=== PATIENT | female | born 1970 | race Caucasian/White ===

== ENCOUNTER 2025-01-27 19:57 | Inpatient (IN) | payer OTHER, SELFPAY ==
[2025-01-27] VITALS (11 sets, daily range): BP systolic 99–151; BP diastolic 75–131; BMI 24.7
--- NOTE | 2025-01-27 14:18 | ED.GENMED ---
ED Provider Triage
<Cole Ochoa PA-C - Last Filed: 01/27/25 14:19>
-
Patient seen by provider in Triage?: Seen in Triage
Attestation: A medical screening examination has been initiated by a qualified medical provider. Based on the assessment performed at this time, it has been determined that an emergent medical condition may exist and the patient has been informed
that further medical evaluation and possible additional diagnostic testing may be needed.
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 She denies any preceding chest pain or lightheadedness. She remembers waking up on the floor. She did hit
her head. She has a slight headache. She is not anticoagulated. She feels slightly nauseous at this time. EKG and labs ordered.
GENERAL: Alert , in no apparent distress
EYE: No visual abnormalities.
NECK: Trachea midline
ENT: No visible abnormalities.
LUNGS: No acute respiratory distress
NEUROLOGICAL: Alert and oriented
SKIN: Skin intact. No visible changes.
MUSCULOSKELETAL: Moving extremities normally
PSYCH: Normal and appropriate interaction.
This is a medical evaluation conducted in person to initiate diagnostic evaluation and provide initial therapeutics. Please see further documentation by the treating clinician.
History of Present Illness
<Cole Ochoa PA-C - Last Filed: 01/27/25 14:19>
General
Chief Complaint: Fainting/Passed Out
Time Seen by Provider: 01/27/25 16:54
<Tobias Whitney DO - Last Filed: 01/27/25 20:16>
History of Present Illness
History of Present Illness:
TIME OF INITIAL ENCOUNTER:
HPI: Patient states that she was working at [employer], changing diaper then she suddenly passed out and struck her head on the floor. There was no definite seizure activity. There is no bowel or bladder incontinence or retention and there
is no tongue bite enrique. She does report having some headaches even before the incident today. There is a small laceration to the back of her head which has 'stopped bleeding'.
EXAM:
GENERAL: Well appearing in no distress
CERVICAL SPINE: No midline c-spine tenderness with excellent AROM
HEAD: Small superficial laceration not currently bleeding but with some associated tenderness over the occiput, no scalp hematoma
CHEST: No chest wall tenderness, normal heart sounds
LUNGS: Equal lung sounds, no respiratory distress
ABDOMEN: No abdominal tenderness, no peritoneal signs
EXTREMITIES: Normal active range of motion, no tenderness
NEURO: Excellent strength all extremities, appropriate mental status, normal speech/language
NUMBER AND COMPLEXITY OF PROBLEMS ADDRESSED AT THE ENCOUNTER
� Chronic conditions affecting care: Asthma, has had concussions
� Acute Exacerbation and/or Progression of Chronic Illness: This is an acute problem
� Differential Diagnosis includes: Concussion, minor head injury, hypoglycemia, anemia, intracranial abnormality
AMOUNT AND/OR COMPLEXITY OF DATA TO BE REVIEWED AND ANALYZED
� I performed an independent evaluation of and my interpretation is:
EKG: Sinus 82, nonspecific ST abnormality
CT: CT brain personally reviewed and I agree with radiologist interpretation that there is a hyperdensity at the midline measuring about 2 cm with some associated edema
X-rays:
Laboratory Studies: CBC unremarkable, chemistries show a slightly low bicarb at 19, transaminases are elevated at 150/202 but normal total bili and alk phos
Other:
� Review of other/old records: I reviewed records, the patient had a colonoscopy in 2022
� Clinical information was obtained by an independent historian: None needed, but I spoke to the at bedside
� Prescriptions/Medications Considered but not given:
� Further testing considered but not performed:
RISK OF COMPLICATIONS AND/OR MORBIDITY OR MORTALITY OF PATIENT MANAGEMENT
� Social determinants of health affecting care: Lives at home
� Discussion with other providers: I spoke to Dr. Montez several times�CTA was recommended and performed which shows no evidence of aneurysm; Dr. Chávez for admission
� Escalation of care including admission/observation vs risk of discharge considered: CT of the brain shows a hyperdensity measuring about 2 cm at the midline inferiorly, however she is neurologically intact. She had been having
some headaches even before the fall today. CTA shows no evidence of aneurysm/aneurysm rupture. Dr. Montez agrees with Keppra/Decadron.
ANY OTHER UPDATES:
Patient has remained neurologically intact throughout her stay in the emerged department
Phy Exam
<Tobias Whitney DO - Last Filed: 01/27/25 20:16>
Physical Exam
Physical Exam:
See HPI
Course
<Cole Ochoa PA-C - Last Filed: 01/27/25 14:19>
Orders/Labs/Results
Orders:
Orders
01/27/25 14:16
Electrocardiogram (*1) Urgent
Reason for Study: Syncope
EKG- Treatment ONCE
01/27/25 14:36
Complete Blood Count/With Diff Urgent
Comprehensive Metabolic Panel Urgent
01/27/25 15:49
CT Head W/o Iv Contrast Urgent
Comment:
Reason For Exam: syncope, head strike
01/27/25 17:13
0.9% Sodium Chloride 500 ml [Nss] 500 ml IV BOLUS
01/27/25 17:33
CT Head Angio W/wo Iv Contrast Urgent
Comment:
Reason For Exam: eval mass; attention ACOMM region
01/27/25 19:08
Dexamethasone Sod Phosphate [Decadron] 4 mg IV NOW STA
Levetiracetam Injectable [Keppra] 500 mg IV NOW STA
01/27/25 19:31
Admit/Transfer Patient As Directed
Co-Sign Provider:
Level of Care: Inpatient admission
Assign to:: IMU- Intermediate Care
Physician / Group: Neelam Chávez
Diagnosis: planum sphenoidale meningioma
Reason for Hospitalization: planum sphenoidale meningioma
Expected length of stay greater than two midnights?: Yes
ELOS- Estimated Length of Stay in days: 3
I certify the patient meets the requirements for IP care: Yes
PRN Pain Medication Management As Directed
May give lesser potent ordered pain med per pt: Yes
preference::
Protocol:: Medication orders for pain may be administered in a
manner that supports deferring to patient preference
when the pt is:
- Requesting an ordered lesser potent pain medication.
Least to most potent pain medications are defined
as: acetaminophen < NSAID < tramadol < opioids
(morphine, oxycodone, hydromorphone).
- Requesting a lesser dose of the same medication IF
ORDERED.
- Requesting a less intrusive route of administration
if both routes are prescribed by the provider (PO <
IV).
01/27/25 19:33
Code Status As Directed
Resuscitation Status: Full Code
Abnormal Lab Results
01/27/25
14:36
Immature Gran % 0.6 H %
(0-0.5)
Carbon Dioxide 19 L mmol/L
(22-30)
BUN 18 H mg/dl
(7-17)
Glucose 127 H mg/dl
(70-99)
Calcium 10.6 H mg/dl
(8.4-10.2)
AST 150 H U/L
(14-36)
ALT 202 H U/L
(0-35)
01/27/25 14:36
01/27/25 14:36
Vital Signs
Initial and Last Documented VS:
Initial Vital Signs
Temp Pulse Resp BP Pulse Ox
36.6 C 79 18 146/81 100
01/27/25 14:11 01/27/25 14:11 01/27/25 14:11 01/27/25 14:11 01/27/25 14:11
Last Documented Vital Signs
Temp Pulse Resp BP Pulse Ox
36.6 C 75 21 138/103 100
01/27/25 14:11 01/27/25 19:45 01/27/25 19:45 01/27/25 19:19 01/27/25 19:30
<Tobias Whitney, DO - Last Filed: 01/27/25 20:16>
Orders/Labs/Results
Orders:
Orders
01/27/25 14:16
Electrocardiogram (*1) Urgent
Reason for Study: Syncope
EKG- Treatment ONCE
01/27/25 14:36
Complete Blood Count/With Diff Urgent
Comprehensive Metabolic Panel Urgent
01/27/25 15:49
CT Head W/o Iv Contrast Urgent
Comment:
Reason For Exam: syncope, head strike
01/27/25 17:13
0.9% Sodium Chloride 500 ml [Nss] 500 ml IV BOLUS
01/27/25 17:33
CT Head Angio W/wo Iv Contrast Urgent
Comment:
Reason For Exam: eval mass; attention ACOMM region
01/27/25 19:08
Dexamethasone Sod Phosphate [Decadron] 4 mg IV NOW STA
Levetiracetam Injectable [Keppra] 500 mg IV NOW STA
01/27/25 19:31
Admit/Transfer Patient As Directed
Co-Sign Provider:
Level of Care: Inpatient admission
Assign to:: IMU- Intermediate Care
Physician / Group: Neelam Chávez
Diagnosis: planum sphenoidale meningioma
Reason for Hospitalization: planum sphenoidale meningioma
Expected length of stay greater than two midnights?: Yes
ELOS- Estimated Length of Stay in days: 3
I certify the patient meets the requirements for IP care: Yes
PRN Pain Medication Management As Directed
May give lesser potent ordered pain med per pt: Yes
preference::
Protocol:: Medication orders for pain may be administered in a
manner that supports deferring to patient preference
when the pt is:
- Requesting an ordered lesser potent pain medication.
Least to most potent pain medications are defined
as: acetaminophen < NSAID < tramadol < opioids
(morphine, oxycodone, hydromorphone).
- Requesting a lesser dose of the same medication IF
ORDERED.
- Requesting a less intrusive route of administration
if both routes are prescribed by the provider (PO <
IV).
01/27/25 19:33
Code Status As Directed
Resuscitation Status: Full Code
Abnormal Lab Results
01/27/25
14:36
Immature Gran % 0.6 H %
(0-0.5)
Carbon Dioxide 19 L mmol/L
(22-30)
BUN 18 H mg/dl
(7-17)
Glucose 127 H mg/dl
(70-99)
Calcium 10.6 H mg/dl
(8.4-10.2)
AST 150 H U/L
(14-36)
ALT 202 H U/L
(0-35)
01/27/25 14:36
01/27/25 14:36
Vital Signs
Initial and Last Documented VS:
Initial Vital Signs
Temp Pulse Resp BP Pulse Ox
36.6 C 79 18 146/81 100
01/27/25 14:11 01/27/25 14:11 01/27/25 14:11 01/27/25 14:11 01/27/25 14:11
Last Documented Vital Signs
Temp Pulse Resp BP Pulse Ox
36.6 C 75 21 138/103 100
01/27/25 14:11 01/27/25 19:45 01/27/25 19:45 01/27/25 19:19 01/27/25 19:30
<Tobias Whitney DO - Last Filed: 01/27/25 20:16>
*Critical Care Note
Total Time (30-74mins, 75-104mins- exclusive of procedures): 45min
comment:
I reassessed patient several times as the patient does have a hyperdensity measuring 2 cm at the midline. I had numerous discussions with Dr. Montez, neurosurgeon. No evidence of aneurysm rupture based on CTA. She was emergently given Keppra
and Decadron.
ED Attending Note
<Cole Ochoa PA-C - Last Filed: 01/27/25 14:19>
-
Portions of this chart may have been created with voice recognition software.� Occasional wrong word or��sound alike� substitutions may have occurred due to the inherent limitations of voice recognition software.
Discharge Plan
Departure
Patient Disposition: Admit
Date of Disposition: 01/27/25
Time of Disposition: 17:33
Presentation/result/management discussed w/ accepting MD/DO: Hospitalist
Discharge Problem:
Intracranial mass
Interventions
Interventions:
*Risk Screen - Suicide Last Done: 01/27/25 14:11
*General Assessment Last Done: 01/27/25 14:11
*Neglect/Abuse Screening Last Done: 01/27/25 14:11
ED- Fall Risk Assessment Last Done: 01/27/25 16:57
*ED COVID-19 Vaccine History Last Done: 01/27/25 14:11
ED- Cardiac Assessment Last Done: 01/27/25 16:57
ED- Neurological Assessment Last Done: 01/27/25 16:57
[2025-01-27 14:58] LABS: % Basophils 0.3 % (0-2); % Eosinophils 1.1 % (0-6); % Immature Granulocytes 0.6 % (0-0.5); % Lymphocytes 34.8 % (20.5-51.1); % Monocytes 5.4 % (1.7-9.3); % Neutrophils 57.8 % (42.2-75.2); Absolute Eosinophils 0.1 10^3/uL (0-0.7); Absolute Lymphocytes 2.5 10^3/uL (1.2-3.4); Absolute Monocytes 0.4 10^3/uL (0.1-0.6); Absolute Neutrophils 4.2 10^3/uL (1.4-6.5); Hematocrit 43.6 % (37.0-47.0); Hemoglobin 15.1 g/dL (12.0-16.0); Mean Corp Hgb Conc. 34.6 g/dL (33.0-37.0); Mean Corpuscular Hgb 30.6 pg (27.0-31.0); Mean Corpuscular Volume 88.3 fL (81.0-99.0); Mean Platelet Volume 8.7 fL (7.4-10.4); Nucleated Red Blood Cells % 0 %; Platelet Count 308 10^3/uL (130-400); Red Blood Cell Count 4.94 10^6/uL (4.20-5.40); Red Cell Dist. Width 12.5 % (11.5-14.5); White Blood Cell Count 7.3 10^3/uL (4.8-10.8)
[2025-01-27 15:08] LABS: ALT (SGPT) 202 U/L (0-35); AST (SGOT) 150 U/L (14-36); Albumin 4.8 g/dl (3.5-5.0); Alkaline Phosphatase 78 U/L (38-126); Blood Urea Nitrogen 18 mg/dl (7-17); Calcium 10.6 mg/dl (8.4-10.2); Carbon Dioxide 19 mmol/L (22-30); Chloride 106 mmol/L (98-107); Glucose 127 mg/dl (70-99); Potassium 4.3 mmol/L (3.5-5.1); Sodium 138 mmol/L (135-145); Total Bilirubin 1.1 mg/dl (0.2-1.3); Total Protein 7.8 g/dl (6.3-8.2); eGFR > 60.00
[2025-01-27] MEDS: NSS 500 IV (17:21)
--- NOTE | 2025-01-27 17:53 | HPS.HSE ---
Family Physician
-
Family Physician:
Chief Complaint
-
syncope
History of Present Illness
Patient is a 55-year-old female with past medical history significant for hyperlipidemia, asthma and seasonal allergies who presented to [facility] ED after syncopal episode. 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
diaper this afternoon when she had a syncopal episode. She states she remembers starting to change diaper then waking up to her boss staring down at her. She denies any lightheadedness or dizzy feeling before episode. She reports a recent URI that
she believes is just about gone. She also states she has complained to primary care for several years of increased fatigue and frequent eye sight changes requiring more frequent visits to eye doctors. Outside of that she denies any other symptoms.
Denies dizziness, fever, chills, cough, shortness of breath, chest pain, nausea, vomiting, constipation, diarrhea and urinary symtpoms.
Medical History
Past Medical History
Past Medical History: Reports Other
Additional Past Medical History:
hyperlipidemia
asthma
seasonal allergies
Past Surgical History: Reports Other
Additional Past Surgical History:
colonoscopy
D&C
endometrial polypectomy
tonsillectomy
Social History
Tobacco: Non-smoker
Alcohol: Occasional (2 drinks a few times a month)
Drug: None
Personal:
Living: With Family
Employment: Employed ([employer] )
Family History
Family History: Other (Paternal: Parkinson's Disease; Maternal: Pancreatic cancer, colon cancer )
Allergies / Home Medications
Allergies reflects when Allergies were last updated in [employer].
Home Medications with original date entered in [employer]
Allergy/Medication List:
Allergies
Allergy/AdvReac Type Severity Reaction Status Date / Time
Antihistamines Allergy Pharmacy Verified 01/27/25 14:14
to Review
azithromycin Allergy vomiting Verified 01/27/25 14:14
[From Zithromax Z-Josué] and
chestpain
latex [Latex] Allergy itchy rash Verified 01/27/25 14:14
penicillin G Allergy vomiting Verified 01/27/25 14:14
Penicillins Allergy vomiting Verified 01/27/25 14:14
Home Medications
albuterol sulfate 90 mcg/actuation aerosol inhaler 2 puff inhalation R Q6HPRN PRN sob 01/27/25
coenzyme Q10 200 mg capsule 200 mg PO HS 01/27/25
fexofenadine 180 mg tablet 180 mg PO DAILYPRN PRN allergies 01/27/25
fluticasone 100 mcg-salmeterol 50 mcg/dose blistr powdr for inhalation 1 inh inhalation R HS 01/27/25
magnesium oxide 200 mg PO HS 01/27/25
melatonin 10 mg tablet 10 mg PO HS 01/27/25
mometasone 50 mcg/actuation nasal spray 2 spray intranasal HS 01/27/25
rosuvastatin 5 mg tablet 5 mg PO HS 01/27/25
Review of Systems
-
History Source: Patient
Constitutional: Reports Fatigue (has been feeling very tired for a long time )
EENT: Reports Other (changes in eyesight more frequent than average last couple hours)
Respiratory: Reports No Symptoms
Cardiac: Reports No Symptoms
Abdomen/GI: Reports No Symptoms
: Reports No Symptoms
Musculoskeletal: Reports No Symptoms
Skin: Reports No Symptoms
Neurological: Reports No Symptoms
Endocrine: Reports No Symptoms
Hematologic/Lymphatic: Reports No Symptoms
Psych: Reports No Symptoms
Physical Exam
Vital Signs
Vital Signs
Temp Pulse Resp BP Pulse Ox
97.9 F 82 18 146/75 100
01/27/25 14:11 01/27/25 17:11 01/27/25 17:11 01/27/25 17:11 01/27/25 17:11
Physical Exam
General: Well Developed, Well Nourished, No Apparent Distress, Comfortable and Conversant
HEENT: NormoCephalic, Moist mucous membranes, Atraumatic, [place] Conjunctivae, Nose Appears Normal and Ears Appear Normal
Respiratory: Clear and Non Labored Respirations
Cardiac: S1/S2 and Regular Rhythm; No Murmur, Rub or Gallop
Breast: Deferred by me
GI: Soft, Non Tender, Non Distended and Normal Bowel Sounds; No Organomegaly
Rectal: Deferred by Provider
Genito-urinary: Deferred by me
Musculoskeletal: No Clubbing, No Cyanosis and No Edema
Skin: Warm and IV/Catheter Site; No Rash
Neuro: Awake, Alert, AO x 3, No Motor Deficits, Nonfocal/grossly intact, Cranial Nerves Intact and No Sensory Deficits
Psych: Intact Judgment/Insight and Anxious
Laboratory Results
-
01/27/25 14:36
01/27/25 14:36
Laboratory Results
Total Bilirubin 1.1 mg/dl (0.2-1.3) 01/27/25 14:36
AST 150 U/L (14-36) H 01/27/25 14:36
ALT 202 U/L (0-35) H 01/27/25 14:36
Alkaline Phosphatase 78 U/L (38-126) 01/27/25 14:36
Data Reviewed
-
CT Scan: Report Reviewed by me (Head CT: 2 cm rounded area of hyperattenuation in the midline inferior frontal region with some localized mass effect and vasogenic edema in the adjacent inferior right frontal lobe. Findings most suspicious for
hemorrhage versus an underlying mass. A follow-up brain MRI without and with intravenous)
Medical Tests (Nuc Med, Echo, EKG etc): Report Reviewed by me (EKG: NORMAL SINUS RHYTHM WITH SINUS ARRHYTHMIA NONSPECIFIC ST ABNORMALITY)
Lab Data: Labs Reviewed by me (AST 150, ALT 202)
Impression/Plan
-
IMPRESSION/PLAN:
#syncope
AST 150, ALT [address]: 2 cm rounded area of hyperattenuation in the midline inferior frontal region with some localized mass effect and vasogenic edema in the adjacent inferior right frontal lobe. Findings most suspicious for hemorrhage
versus an underlying mass. A follow-up brain MRI without and with intravenous contrast may be helpful for further characterization.
Head/Neck CTA: Midline inferior frontal mass with enhancement. This does not appear to represent an aneurysm arising from the anterior communicating artery.
EKG: NORMAL SINUS RHYTHM WITH SINUS ARRHYTHMIA
NONSPECIFIC ST ABNORMALITY
- Admit to IMU
- Consult neurosurgery
- q2 neurochecks
- Keppra 500mg BID
- Decadron 4mg q6
- MRI
#transaminitis
AST 150, ALT 202
patient reports elevated liver enzymes for a while with workup that did not reveal etiology
#hyperlipidemia
- continue rosuvastatin
#seasonal allergies
- continue albuterol HFA PRN, Charlee, fluticasone and Nasonex
Code status: full code
DVT prophylaxis: SCDs
[2025-01-27] MEDS: KEPPRA 500 MG IV (19:13)
[2025-01-27] MEDS: DECADRON 4 MG IV (19:13)
--- NOTE | 2025-01-27 19:47 | W.PN.UPDATE ---
Update Note
Progress Note Update
This is an addendum to the H&P written by Tish Bennett on 01/27/2025. Patient seen and examined independently with CALL WORKER PERSON.
55-year-old female past medical history of asthma, hyperlipidemia, seasonal allergies when she had a syncopal episode while working at [employer] while changing a diaper. No preceding symptoms. She hit her head. She has been having
ongoing visual difficulties for years as well as intermittent headaches, and recent sensation of right arm falling asleep in the morning.
Patient has a history of transaminitis that was worked up without any etiology found.
No focal neurological deficits.
CT head shows 2 cm hyperattenuation in the midline inferior frontal region with some localized mass effect and vasogenic edema and adjacent inferior right frontal lobe suspicious for hemorrhage versus underlying mass.
Labs show transaminitis.
CTA head and neck shows midline inferior frontal mass 2.5 x 2 x 1.7 centimeter mass, which neurosurgery thinks might be meningioma.
Telemetry monitoring. Check MRI brain with and without contrast. Every 2 hours neurochecks. Decadron and prophylactic Keppra started.
--- NOTE | 2025-01-27 22:58 | PTCARENOTE ---
Verbal confirmation received from ED meteorologist in charge, Heather, regarding monitor handoff. ED RN Heather certified that pt was discharged from ED monitor. Pt was then admitted to IMU monitor by this RN.
[2025-01-27] MEDS: ADVAIR HFA 45/21 MCG INHALER INH (23:03)
[2025-01-27] MEDS: MELATONIN 10 MG PO (23:31)
[2025-01-27] MEDS: MAG-TAB SR 84 MG PO (23:31)
[2025-01-27] MEDS: CRESTOR 5 MG PO (23:31)
[2025-01-28] VITALS (11 sets, daily range): BP systolic 94–125; BP diastolic 56–90; PULSE 76–106
--- NOTE | 2025-01-28 00:02 | PTCARENOTE ---
Addendum entered by Daisy Duarte RN 01/28/25 00:41:
Patient still having a headache and complains of 5/10 pain at the back of the head. BATOOL White made aware and bedside to assess the patient. Pt wanting to try PRN Tylenol. Ice pack placed behind head. No active bleeding.
Original Note:
Patient received from the ED. Refer to previous note from lost charge card clerk Kelly about the monitor handoff. Pt AAOx3, pleasant. Pt has a scabbed over laceration on the back of her head from her fall. She does complain of a headache but does not want to
take PRN tylenol. PERRLA and no sensitivity to light. Strength equal b/l, sensation intact. Normal sinus on tele. 98% on RA, lungs clear. Pt ambulated with assistance to the bathroom, denies dizziness or lightheadedness. Pt oriented to the unit.
Call rivas is within reach.
[2025-01-28] MEDS: ADVAIR HFA 45/21 MCG INHALER 2 PUFF INH ×2 (00:08→19:48)
[2025-01-28] MEDS: TYLENOL 650 MG PO ×3 (00:27→16:21)
[2025-01-28] MEDS: DECADRON 4 MG IV ×4 (02:08→21:51)
[2025-01-28 05:29] LABS: Hematocrit 43.3 % (37.0-47.0); Hemoglobin 14.8 g/dL (12.0-16.0); Mean Corp Hgb Conc. 34.2 g/dL (33.0-37.0); Mean Corpuscular Hgb 30.8 pg (27.0-31.0); Mean Platelet Volume 8.9 fL (7.4-10.4); Platelet Count 291 10^3/uL (130-400); Red Blood Cell Count 4.81 10^6/uL (4.20-5.40); Red Cell Dist. Width 12.4 % (11.5-14.5); White Blood Cell Count 7.1 10^3/uL (4.8-10.8)
[2025-01-28 05:42] LABS: Blood Urea Nitrogen 13 mg/dl (7-17); Calcium 10.2 mg/dl (8.4-10.2); Carbon Dioxide 16 mmol/L (22-30); Chloride 113 mmol/L (98-107); Estimated Creatinine Clearance 97 ml/min; Glucose 154 mg/dl (70-99); Potassium 4.2 mmol/L (3.5-5.1); Sodium 141 mmol/L (135-145); eGFR > 60.00
[2025-01-28] MEDS: KEPPRA 500 MG IV ×2 (08:54→19:46)
--- NOTE | 2025-01-28 09:29 | W.PN.HOSP.TC ---
Addendum entered and electronically signed by Zeke Gagnon MD 01/28/25 16:55:
Metabolic acidosis-proceed to further workup
Original Note:
Today's Communication/Plan
-
PT OT. Echocardiogram. MRI of the brain. IV steroids. Neurosurgery eval
Assessment / Plan
Assessment / Plan
Physical exam:
General: Well Developed, Well Nourished and No Apparent Distress
HEENT: Normocephalic, Atraumatic and Moist Mucous Membranes
Respiratory: Clear to Auscultation; Negative Wheezes, Rales or Rhonchi
Cardiac: Regular Rhythm and S1/S2
GI: Soft, Nontender and Nondistended
Musculoskeletal: No Clubbing, No Cyanosis and No Edema
Neuro: Awake, Alert and Oriented x 3, strength normal, no sensory deficits, cranial nerves are intact.
Psych: Anxious
A/P:
Syncope:
advertising copywriter
Brain MRI
Check orthostatic
Check echocardiogram
PT OT eval
Brain mass:
MRI of the brain
IV steroid
Keppra
Neurosurgery consult
Continue neuro checks
Hyperlipidemia:
Hold statin
Elevated LFTs:
Check ultrasound of the liver
Trend LFTs
DVT prophylaxis:
SCDs
CODE STATUS:
Full code
Total time spent on today's encounter was 52 minutes which included time spent in counseling the patient/family regarding diagnosis and treatment plan as listed above, goals of care, and symptom management. Case was discussed with nursing staff,
specialists, and care coordinators/case management. All labs and imaging personally reviewed by me. Remainder the time spent in detailed review of previous records, lab data, imaging, and other medical provider documentation.
Anticipated Discharge: 24 - 48 hours
Subjective/Interval History
-
Date of Service: January 28, 2025
Patient still reports sinus pressure and headache. No chest pain. She has been having shortness of breath but overall better.
Objective Data
-
Labs:
Laboratory Results
01/28/25
05:03
WBC 7.1
Hgb 14.8
Hct 43.3
Plt Count 291
Sodium 141
Potassium 4.2
Chloride 113 H
Carbon Dioxide 16 L
BUN 13
Creatinine 0.6
Glucose 154 H
Calcium 10.2
Vital Signs:
Vital Signs
Temp Pulse Resp BP Pulse Ox
97.9 F 98 22 102/77 96
01/28/25 04:48 01/28/25 08:00 01/28/25 08:00 01/28/25 06:00 01/28/25 06:00
--- NOTE | 2025-01-28 10:56 | PTCARENOTE ---
May be off telemetry for MRI per Dr. Gagnon. Sent for study.
--- NOTE | 2025-01-28 14:43 | CON.NS ---
Consultation
-
Date/Time Consultation Performed: 14:22; 01/28/2025
Performing Provider: Lance
Chief Complaint
History of Present Illness
This is a neurosurgical consultation on a 55-year-old female who presented yesterday after syncopal episode. 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 She reports that she is changing a diaper when she had syncopal episode. She does
have a recent URI that she was just recovering from. She also reports that she has had recent eyesight changes require more frequent visits to the eye doctors. Prior to this incident, she denies any aura, or lightheadedness, or dizzy feeling. She
presented to the emergency room. Where she underwent a head CT. It demonstrated a 2 cm area within the midline frontal region, suspicious for lesion. Brain MRI was then recommended.
Patient seen and examined. She reports that she has had ongoing pressure-like sensation/sinus pressure headache for several months/years. She also has noticed some changes in her vision, and she has been to the eye doctor frequently to get new
prescription glasses. She is most concerned about her shortness of breath. 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 She denies any
numbness, tingling, in the upper or lower extremities.
Review of Systems
-
10 point review of systems including constitutional, ENT, cardiovascular, respiratory, GI, , neurologic, endocrinologic, hematologic, and musculoskeletal was performed, and was negative, except for stated in HPI.
Medication and Allergies
Home Medications
Home Medications
�Medication �Instructions �Recorded
albuterol sulfate 90 mcg/actuation 2 puff inhalation R Q6HPRN PRN sob 01/27/25
aerosol inhaler
coenzyme Q10 200 mg capsule 200 mg PO HS Supplement 01/27/25
fexofenadine 180 mg tablet 180 mg PO DAILYPRN PRN allergies 01/27/25
fluticasone 100 mcg-salmeterol 50 1 inh inhalation R HS 01/27/25
mcg/dose blistr powdr for Lung/Breathing Issues
inhalation
magnesium oxide 200 mg PO HS Electrolyte Repletion 01/27/25
melatonin 10 mg tablet 10 mg PO HS Sleep 01/27/25
mometasone 50 mcg/actuation nasal 2 spray intranasal HS Allergies 01/27/25
spray
rosuvastatin 5 mg tablet 5 mg PO HS High Cholesterol 01/27/25
Allergies
Allergies
Allergy/AdvReac Type Severity Reaction Status Date / Time
Antihistamines Allergy Pharmacy Verified 01/27/25 14:14
to Review
azithromycin Allergy vomiting Verified 01/27/25 14:14
[From Zithromax Z-Josué] and
chestpain
latex [Latex] Allergy itchy rash Verified 01/27/25 14:14
penicillin G Allergy vomiting Verified 01/27/25 14:14
Penicillins Allergy vomiting Verified 01/27/25 14:14
Physical Exam
-
Exam:
Patient is awake, alert, no apparent distress.
Cranial nerves II to XII are grossly intact.
Visual broderick are full.
No pronator drift on examination
5 out of 5 strength bilaterally in upper extremities and lower extremities.
Sensation is intact in upper and lower extremities.
Gait is steady
MRI of the brain with and without contrast performed on 01/28/2025 was reviewed. Images were personally viewed and interpreted by me. There is evidence of homogeneously enhancing lesion with a dural tail located in the midline of the anterior
cranial fossa. Lesion appears to originate from the planum sphenoid alley. There appears to be adjacent hyperostosis noted as well. There is significant T2 FLAIR hyper intensity within the right frontal lobe suggestive of vasogenic edema.
Problems
-
Problem Status Onset Code
Intracranial mass R90.0
Assessment / Plan
-
This is a 55-year-old female that presents with syncopal episode. CT scan of the head demonstrates lesion within the anterior cranial fossa, midline. 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
Presenting symptoms were syncope, the setting of a recent URI, and shortness of breath. Recommend ongoing workup and treatment of this.
Continue dexamethasone, Keppra.
I discussed extensively with the patient, and her the surgical indications. Given evidence of edema, she would benefit from resection.
We discussed timing of this. Ultimately, she can be discharged on dexamethasone with plans for outpatient follow-up with soon as possible, to schedule surgery.
I did explain to her, that I am unavailable in the upcoming weeks due to travel to be able to treat her at [facility] for the surgery.
I will be contacting [facility] neurosurgery to see if we can arrange for outpatient neurosurgery follow-up expeditiously.
Patient can go home per my specialty: No
--- NOTE | 2025-01-28 17:24 | CM ---
Patient with Dx syncope, brain mass. MRI brain today. Seen by neurosurgeon. PT Eval; no needs unless surgery. OT Eval pending.
Met with patient and ;
the patient resides in a 2 story condo with 4 steps at entrance, 8 stairs up to living room, 10 stairs up to bedroom.
The patient was independent in ADLs and ambulation until she fell yesterday at work.
She is a teacher at the [email or web address].
The patient has no DME, prior VN or SNF.
PCP - Dr Deluca
Pharmacy - [facility]
Plan home.
[2025-01-28] MEDS: MELATONIN 10 MG PO (21:50)
[2025-01-28] MEDS: CRESTOR 5 MG PO (21:51)
[2025-01-28] MEDS: MAG-TAB SR 84 MG PO (21:51)
[2025-01-29] VITALS (17 sets, daily range): BP systolic 94–131; BP diastolic 62–112; PULSE 92–95
[2025-01-29 05:26] LABS: INR 0.95; PT 13.2 Sec (11.4-14.6)
[2025-01-29 05:33] LABS: ALT (SGPT) 119 U/L (0-35); AST (SGOT) 45 U/L (14-36); Alkaline Phosphatase 71 U/L (38-126); Blood Urea Nitrogen 18 mg/dl (7-17); Calcium 9.9 mg/dl (8.4-10.2); Carbon Dioxide 17 mmol/L (22-30); Chloride 110 mmol/L (98-107); Direct Bilirubin 0.1 mg/dl (0.0-0.4); Estimated Creatinine Clearance 83 ml/min; Glucose 167 mg/dl (70-99); Lactic Acid 2.5 mmol/L (0.7-2.0); Potassium 4.2 mmol/L (3.5-5.1); Sodium 139 mmol/L (135-145); Total Bilirubin 0.7 mg/dl (0.2-1.3); Total Protein 6.8 g/dl (6.3-8.2); eGFR > 60.00
[2025-01-29 05:39] LABS: B-Hydroxybutyrate 0.14 mmol/L (0.02-0.27)
[2025-01-29] MEDS: DECADRON 4 MG IV ×3 (05:54→21:43)
[2025-01-29] MEDS: TYLENOL 650 MG PO (08:00)
[2025-01-29] MEDS: KEPPRA 500 MG IV ×2 (08:00→19:33)
--- NOTE | 2025-01-29 09:17 | W.PN.HOSP.TC ---
Today's Communication/Plan
-
Ultrasound of the liver. CTA of the chest. IV steroids and IV Keppra.
Assessment / Plan
Assessment / Plan
Physical exam:
General: Well Developed, Well Nourished and No Apparent Distress
HEENT: Normocephalic, Atraumatic and Moist Mucous Membranes
Respiratory: Clear to Auscultation; Negative Wheezes, Rales or Rhonchi
Cardiac: Regular Rhythm and S1/S2
GI: Soft, Nontender and Nondistended
Musculoskeletal: No Clubbing, No Cyanosis and No Edema
Neuro: Awake, Alert and Oriented x 3, strength normal, no sensory deficits, cranial nerves are intact.
Psych: Anxious
A/P:
Syncope:
Continue engine monitor
Brain MRI confirms brain mass as below
Check orthostatic
Check echocardiogram--> unremarkable
PT OT eval
Brain mass:
MRI of the brain
Continue IV steroid
Continue IV Keppra
Neurosurgery consult
Continue neuro checks but decrease frequency
Shortness of breath:
Normal echocardiogram
Will proceed with CTA of the chest to rule out PE
Could be postinfectious process but will reevaluate
Metabolic acidosis with lactic acidosis:
Start IV fluid
?No signs of active infection
Trend lactate
Hyperlipidemia:
Hold statin
Elevated LFTs:
Check ultrasound of the liver
Trend LFTs
DVT prophylaxis:
SCDs
CODE STATUS:
Full code
Total time spent on today's encounter was 52 minutes which included time spent in counseling the patient/family regarding diagnosis and treatment plan as listed above, goals of care, and symptom management. Case was discussed with nursing staff,
specialists, and care coordinators/case management. All labs and imaging personally reviewed by me. Remainder the time spent in detailed review of previous records, lab data, imaging, and other medical provider documentation.
Anticipated Discharge: 24 - 48 hours
Subjective/Interval History
-
Date of Service: January 29, 2025
Patient feels slightly better today but not back to her baseline. Afebrile
Objective Data
-
Labs:
Laboratory Results
01/29/25
04:46
PT 13.2
INR 0.95
Sodium 139
Potassium 4.2
Chloride 110 H
Carbon Dioxide 17 L
BUN 18 H
Creatinine 0.7
Glucose 167 H
Calcium 9.9
Total Bilirubin 0.7
AST 45 H
ALT 119 H
Alkaline Phosphatase 71
Vital Signs:
Vital Signs
Temp Pulse Resp BP Pulse Ox
98.3 F 90 22 117/80 98
01/29/25 07:46 01/29/25 04:27 01/29/25 04:27 01/29/25 04:27 01/28/25 19:54
[2025-01-29] MEDS: LR 1000 IV ×2 (10:24→19:34)
[2025-01-29 14:19] LABS: Lactic Acid 2.9 mmol/L (0.7-2.0)
[2025-01-29 16:42] LABS: COVID-19 Antigen Negative (Negative)
[2025-01-29 17:39] LABS: Urine Albumin Negative (Neg - Trace); Urine Bilirubin Negative (Negative); Urine Character Clear (Clear); Urine Glucose Negative (Negative); Urine Ketone Negative (Negative); Urine Leukocyte Negative (Negative); Urine Nitrite Negative (Negative); Urine Occult Blood Negative (Negative); Urine Urobilinogen Negative (Neg - 1+); Urine pH 6.5 (5.0-9.0)
[2025-01-29 17:40] LABS: Urine Color Straw
--- NOTE | 2025-01-29 19:17 | PTCARENOTE ---
Neuro checks as documented. Changed to q8. No bleeding from posterior head laceration- unable to see it through hair. Tylenol given for headache posterior with good relief. US ABD completed today, CT Chest completed as well. Lactic acid result
relayed to provider- IVF initiated- repeat LA also relayed to provider. [place] cultures obtained inc. flu/ covid swabs. Repeat Lactic in am only and maintain IVF infusing at 100ml/hr per Dr. Gagnon.
[2025-01-29] MEDS: ADVAIR HFA 45/21 MCG INHALER 2 PUFF INH (20:41)
[2025-01-29] MEDS: MAG-TAB SR 84 MG PO (21:43)
[2025-01-29] MEDS: MELATONIN 10 MG PO (21:43)
--- NOTE | 2025-01-29 23:03 | PTCARENOTE ---
Pt received resting in bed at beginning of shift with at bedside. AAOx3. Neuro checks as documented. Slightly anxious. VSS. Afebrile. SR on CM rate 70-80's. POX RA 95-96%. Denies pain presently. Using BSC overnight for convenience. Voiding
without issue 1300mls urine output so far. IVF's infusing as ordered. HS meds given without issue. Rest of assessment as documented. Call rivas within reach. Will continue to monitor.
[2025-01-30] VITALS: BP 105/75
[2025-01-30 02:00] VITALS: BP 101/59
[2025-01-30 04:00] VITALS: BP 111/76
[2025-01-30 04:37] LABS: Lactic Acid 2.2 mmol/L (0.7-2.0)
[2025-01-30 04:48] LABS: ALT (SGPT) 88 U/L (0-35); AST (SGOT) 26 U/L (14-36); Albumin 3.6 g/dl (3.5-5.0); Alkaline Phosphatase 66 U/L (38-126); Blood Urea Nitrogen 15 mg/dl (7-17); Calcium 9.6 mg/dl (8.4-10.2); Carbon Dioxide 21 mmol/L (22-30); Chloride 111 mmol/L (98-107); Direct Bilirubin 0.1 mg/dl (0.0-0.4); Estimated Creatinine Clearance 97 ml/min; Glucose 138 mg/dl (70-99); Potassium 4.5 mmol/L (3.5-5.1); Sodium 140 mmol/L (135-145); Total Bilirubin 0.5 mg/dl (0.2-1.3); Total Protein 6.2 g/dl (6.3-8.2); eGFR > 60.00
[2025-01-30] MEDS: LR 1000 IV ×2 (05:55→16:16)
[2025-01-30] MEDS: DECADRON 4 MG IV ×3 (05:55→20:36)
[2025-01-30 06:00] VITALS: BP 101/65
[2025-01-30 08:00] VITALS: BP 114/91
[2025-01-30] MEDS: KEPPRA 500 MG IV ×2 (08:01→20:36)
--- NOTE | 2025-01-30 09:33 | W.PN.HOSP.TC ---
Today's Communication/Plan
-
IV fluids. IV steroids and Keppra.
Assessment / Plan
Assessment / Plan
Physical exam:
General: Well Developed, Well Nourished and No Apparent Distress
HEENT: Normocephalic, Atraumatic and Moist Mucous Membranes
Respiratory: Clear to Auscultation; Negative Wheezes, Rales or Rhonchi
Cardiac: Regular Rhythm and S1/S2
GI: Soft, Nontender and Nondistended
Musculoskeletal: No Clubbing, No Cyanosis and No Edema
Neuro: Awake, Alert and Oriented x 3, strength normal, no sensory deficits, cranial nerves are intact.
Psych: Anxious
A/P:
Syncope:
Continue general merchandise salesperson
Brain MRI confirms brain mass as below
Check orthostatic
Checked echocardiogram--> unremarkable
PT OT eval
Can transfer to telemetry today
Brain mass:
MRI of the brain reviewed result
Continue IV steroid
Continue IV Keppra
Neurosurgery consult appreciated
Continue neuro checks but decrease frequency
Shortness of breath:
Normal echocardiogram
CTA no evidence of PE
Could be postinfectious process but will reevaluate
Metabolic acidosis with lactic acidosis:
Recheck acidosis and lactate in a.m.
Continue IV fluid
?No signs of active infection--> blood cultures negative so far but will follow-up for 24 more hours
Lactate trended down
Hyperlipidemia:
Hold statin
Elevated LFTs:
Ultrasound of the liver
LFTs are trending down but will check again in a.m.
DVT prophylaxis:
SCDs
CODE STATUS:
Full code
Anticipated Discharge: Within 24 hours
Subjective/Interval History
-
Date of Service: January 30, 2025
Patient feels better today. Afebrile
Objective Data
-
Labs:
Laboratory Results
01/30/25
04:10
Sodium 140
Potassium 4.5
Chloride 111 H
Carbon Dioxide 21 L
BUN 15
Creatinine 0.6
Glucose 138 H
Calcium 9.6
Total Bilirubin 0.5
AST 26
ALT 88 H
Alkaline Phosphatase 66
Vital Signs:
Vital Signs
Temp Pulse Resp BP Pulse Ox
97.7 F 91 20 101/65 96
01/30/25 02:56 01/30/25 06:00 01/30/25 06:00 01/30/25 06:00 01/30/25 08:16
I&O
01/29/25 01/30/25 01/31/25
06:59 06:59 06:59
Intake Total 2300 / 2300
Output Total 2870 / 2870
Balance -570 / -570
[2025-01-30] MEDS: TYLENOL 650 MG PO (11:38)
[2025-01-30] MEDS: CLARITIN 10 MG PO (13:57)
[2025-01-30 19:00] VITALS: BP 125/93
[2025-01-30] MEDS: MELATONIN 10 MG PO (20:36)
[2025-01-30] MEDS: MAG-TAB SR 84 MG PO (20:36)
[2025-01-30] MEDS: ADVAIR HFA 45/21 MCG INHALER 2 PUFF INH (20:41)
[2025-01-31 04:00] LABS: Lactic Acid 2.6 mmol/L (0.7-2.0)
[2025-01-31 04:01] LABS: ALT (SGPT) 70 U/L (0-35); AST (SGOT) 21 U/L (14-36); Albumin 4.1 g/dl (3.5-5.0); Alkaline Phosphatase 70 U/L (38-126); Blood Urea Nitrogen 19 mg/dl (7-17); Calcium 10.2 mg/dl (8.4-10.2); Carbon Dioxide 20 mmol/L (22-30); Chloride 106 mmol/L (98-107); Estimated Creatinine Clearance 97 ml/min; Glucose 137 mg/dl (70-99); Potassium 4.2 mmol/L (3.5-5.1); Sodium 139 mmol/L (135-145); Total Bilirubin 0.7 mg/dl (0.2-1.3); Total Protein 6.7 g/dl (6.3-8.2); eGFR > 60.00
[2025-01-31 04:17] VITALS: BP 118/78
[2025-01-31] MEDS: LR IV (04:42)
[2025-01-31] MEDS: DECADRON 4 MG IV (04:42)
[2025-01-31] MEDS: KEPPRA 500 MG IV (08:40)
--- NOTE | 2025-01-31 09:22 | W.PN.HOSP.TC ---
Today's Communication/Plan
-
Discharge planning
Assessment / Plan
Assessment / Plan
Physical exam:
General: Well Developed, Well Nourished and No Apparent Distress
HEENT: Normocephalic, Atraumatic and Moist Mucous Membranes
Respiratory: Clear to Auscultation; Negative Wheezes, Rales or Rhonchi
Cardiac: Regular Rhythm and S1/S2
GI: Soft, Nontender and Nondistended
Musculoskeletal: No Clubbing, No Cyanosis and No Edema
Neuro: Awake, Alert and Oriented x 3, strength normal, no sensory deficits, cranial nerves are intact.
Psych: Anxious
A/P:
Syncope:
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
Brain MRI confirms brain mass as below
Check orthostatic
Checked echocardiogram--> unremarkable
PT OT eval
Can transfer to telemetry today
Brain mass:
MRI of the brain reviewed result
Continue IV steroid
Continue IV Keppra
Neurosurgery consult appreciated
Continue neuro checks but decrease frequency
Shortness of breath:
Normal echocardiogram
CTA no evidence of PE
Could be postinfectious process but will reevaluate
Metabolic acidosis with lactic acidosis:
Stop IVF
No signs of clear cut active infection and remains afebrile--> blood cultures negative so far
Lactate trended down
Hyperlipidemia:
Can restart statin since lft trended down
Elevated LFTs:
Ultrasound of the liver
LFTs trending down
DVT prophylaxis:
SCDs
CODE STATUS:
Full code
Anticipated Discharge: Today
Subjective/Interval History
-
Date of Service: January 31, 2025
Feels better overall. Afebrile
Objective Data
-
Labs:
Laboratory Results
01/31/25
03:28
Sodium 139
Potassium 4.2
Chloride 106
Carbon Dioxide 20 L
BUN 19 H
Creatinine 0.6
Glucose 137 H
Calcium 10.2
Total Bilirubin 0.7
AST 21
ALT 70 H
Alkaline Phosphatase 70
Vital Signs:
Vital Signs
Temp Pulse Resp BP Pulse Ox
98.4 F 64 29 118/78 96
01/31/25 07:13 01/31/25 06:00 01/30/25 10:00 01/31/25 04:17 01/30/25 20:57
I&O
01/30/25 01/31/25 02/01/25
06:59 06:59 06:59
Intake Total 2300 / 2300 900 / 900
Output Total 2870 / 2870 800 / 800
Balance -570 / -570 100 / 100
--- NOTE | 2025-01-31 12:10 | W.DCSUMMARY ---
Addendum entered and electronically signed by Zeke Gagnon MD 02/02/25 09:16:
Reviewed results of one of two blood cx and it is CONS consistent with contaminant.
Addendum entered and electronically signed by Zeke Gagnon MD 01/31/25 15:47:
Shortly after discharge blood cultures reported to RN positive. It appears is one out of the bottles with GPC so given she remains afebrile suspect this is a contaminant but can wait for final reading for 24-48 hrs. If serious organism she would
need to come back, but if not then no need to do anything else.
Original Note:
Discharge Summary
Discharge Data
Date of Admission: 01/27/25
Date of Discharge: 01/31/25
-
Pending Results: No
Hospital Course
Patient 55 years old female with no significant past medical history came into the hospital for syncope event. Patient had recent URI. She had a normal echocardiogram. No evidence of cardiac arrhythmias on telemetry. She did have abnormal CT
scan of the head with brain mass and MRI was done that confirmed the presence of a brain mass. Neurosurgery consulted. She was started on IV steroids and IV antiseizure medications. She will continue with antiseizure's and with a tapering course
of oral steroids as outpatient. Neurosurgery discussed with patient the need for surgery but can be done as outpatient. Neurosurgery will discuss as outpatient if this will be done by [facility] or [facility] but most likely with [place]. She also had
some increased lactate and some metabolic acidosis that responded with intravenous fluids and there was no evidence of infection. Blood cultures remain no growth. Acidosis resolving. Lactate trended down. LFTs also trending down. She had an
ultrasound of the liver with no acute abnormalities. She also participated with PT. She feels close back to her baseline. She will be discharged today with close follow-up with neurosurgery as outpatient.
Discharge duration: 35 minutes
Discharge Plan
-
Patient Disposition: Home (Routine Discharge)
Discharge Diagnosis/Procedures: Syncope. Brain tumor. Metabolic acidosis with increased lactate. Elevated liver function test.
Diet: Low Cholesterol
Activity: As tolerated
Driving Restrictions: Not until seen by your Dr
Blood Work: Please PCP to order CBC, CMP within 1 week
Referrals:
Bhavin Montez, [Active] - in one to two weeks
Hernan Chery MD [Family Provider] - in less than 1 week
Prescriptions:
New
dexamethasone 4 mg tablet
4 mg PO TID Qty: 30 0RF
Rx Instructions:
4 mg 3 times daily for 5 days, then 4 mg twice a day for 5 days, then 4 mg once a day for 5 days
levetiracetam [Keppra] 500 mg tablet
500 mg PO BID Qty: 60 0RF
Continued
fexofenadine 180 mg Tablet
180 mg PO DAILYPRN PRN (Reason: allergies)
mometasone 50 mcg/actuation [place],Non-Aerosol
2 spray INTRANASAL HS
fluticasone propion-salmeterol 100-50 mcg/dose Blister With Device
1 inh INHALATION R HS
albuterol sulfate 90 mcg/actuation Hfa Aerosol Inhaler
2 puff INHALATION R Q6HPRN PRN (Reason: sob)
rosuvastatin 5 mg Tablet
5 mg PO HS
coenzyme Q10 200 mg Capsule
200 mg PO HS
melatonin 10 mg Tablet
10 mg PO HS
magnesium oxide 200 mg magnesium Tablet
200 mg PO HS
Discharge Orders:
Discharge Patient (As Directed); Ordered 01/31/25
Ordered By: Zeke Gagnon
Discharge Date and Time
Discharge Date/Time: 01/31/25 14:00
Print Language: INDONESIAN
--- NOTE | 2025-01-31 12:25 | CM ---
Chart reviewed, home no needs.
Plan; Home no needs.
--- NOTE | 2025-01-31 13:51 | PTCARENOTE ---
Recieved discharge order from hospitalist; Reviewed discharge instructions with Pt and , all questions answered; Heart monitor and IV removed. Brought to [facility] area via wheelchair. Discharged home.
== END 2025-01-31 14:00 | disposition home or self-care (01) | DRG 54 ==
LOC: IMU 19:57
PROVIDERS: Nurse Practitioner Family; Physician Assistant; ADMITTING PHYSICIAN Hospitalist; ATTENDING PHYSICIAN Hospitalist; EMERGENCY PHYSICIAN Emergency Medicine; FAMILY PHYSICIAN Family Medicine; OTHER PHYSICIAN Neurological Surgery
DX: D32.0 Benign neoplasm of cerebral meninges (principal); G93.6 Cerebral edema; E87.20 Acidosis, unspecified; E78.5 Hyperlipidemia, unspecified; R79.89 Other specified abnormal findings of blood chemistry; Z79.899 Other long term (current) drug therapy; Z11.52 Encounter for screening for COVID-19
CPT/HCPCS: 70450; 70496; 70553; 71275; 76700; 80048; 80053; 81003; 82010; 82248; 83605; 85025; 85027; 85610; 87040; 87147; 87205; 87502; 87811; 93005; 93306; 94640; 96361; 96374; 96375; 97163; 97166; 99291; A9575; Q9967

== ENCOUNTER 2025-05-31 15:20 | Outpatient (RCR) | payer OTHER, SELFPAY | END 2025-05-31 23:59 | disposition home or self-care (01) | LOC: RPT 15:20 | PROVIDERS: ATTENDING PHYSICIAN Physician Assistant; FAMILY PHYSICIAN Family Medicine | DX: C71.9 Malignant neoplasm of brain, unspecified (principal); Z73.6 Limitation of activities due to disability | CPT/HCPCS: 97110; 97112; 97140; 97163; 97167; 97530 ==

== ENCOUNTER → 2025-06-08 06:50 | Outpatient (REF) | payer OTHER, SELFPAY ==
[2025-06-08 07:51] LABS: Hematocrit 42.0 % (37.0-47.0); Hemoglobin 14.2 g/dL (12.0-16.0); Mean Corp Hgb Conc. 33.8 g/dL (33.0-37.0); Mean Corpuscular Volume 89.9 fL (81.0-99.0); Nucleated Red Blood Cells % 0 %; Platelet Count 285 10^3/uL (130-400); Red Cell Dist. Width 12.1 % (11.5-14.5)
[2025-06-08 08:40] LABS: Blood Urea Nitrogen 18 mg/dl (7-17); Calcium 10.0 mg/dl (8.4-10.2); Carbon Dioxide 20 mmol/L (22-30); Chloride 111 mmol/L (98-107); Glucose 94 mg/dl (70-99); Potassium 4.7 mmol/L (3.5-5.1); Sodium 141 mmol/L (135-145); eGFR > 60.00
[2025-06-08 08:57] LABS: Cortisol, Random 12.8 ug/dl
== END ==
LOC: REG 06:50
PROVIDERS: ATTENDING PHYSICIAN Physician Assistant; FAMILY PHYSICIAN Family Medicine
DX: R53.81 Other malaise (principal); R53.83 Other fatigue; D32.9 Benign neoplasm of meninges, unspecified
CPT/HCPCS: 36415; 80048; 82533; 85025

== ENCOUNTER → 2025-06-09 08:13 | Outpatient (REF) | payer OTHER, SELFPAY | LOC: WDC 08:13 | PROVIDERS: ATTENDING PHYSICIAN Obstetrics & Gynecology; FAMILY PHYSICIAN Family Medicine | DX: Z12.31 Encounter for screening mammogram for malignant neoplasm of breast (principal) | CPT/HCPCS: 77063; 77067 ==

== ENCOUNTER 2025-07-01 08:55 | Outpatient (RCR) | payer OTHER, SELFPAY | END 2025-07-01 23:59 | disposition home or self-care (01) | LOC: RPT 08:55 | PROVIDERS: ATTENDING PHYSICIAN Physician Assistant; FAMILY PHYSICIAN Family Medicine | DX: C71.9 Malignant neoplasm of brain, unspecified (principal); Z73.6 Limitation of activities due to disability; R51.9 Headache, unspecified; R26.89 Other abnormalities of gait and mobility; Z98.890 Other specified postprocedural states | CPT/HCPCS: 97110; 97112; 97530 ==

== ENCOUNTER → 2025-07-09 07:34 | Outpatient (REF) | payer OTHER, SELFPAY ==
[2025-07-09 08:58] LABS: Hematocrit 44.1 % (37.0-47.0); Hemoglobin 14.7 g/dL (12.0-16.0); Mean Corp Hgb Conc. 33.3 g/dL (33.0-37.0); Mean Corpuscular Volume 90.9 fL (81.0-99.0); Nucleated Red Blood Cells % 0 %; Platelet Count 285 10^3/uL (130-400); Red Cell Dist. Width 12.5 % (11.5-14.5)
[2025-07-09 09:27] LABS: ALT (SGPT) 21 U/L (0-35); AST (SGOT) 21 U/L (14-36); Albumin 4.6 g/dl (3.5-5.0); Alkaline Phosphatase 76 U/L (38-126); Blood Urea Nitrogen 16 mg/dl (7-17); Calcium 10.1 mg/dl (8.4-10.2); Carbon Dioxide 24 mmol/L (22-30); Chloride 109 mmol/L (98-107); Glucose 98 mg/dl (70-99); HDL Cholesterol 50 mg/dl; LDL Cholesterol, Calculated 97 mg/dl; Potassium 5.1 mmol/L (3.5-5.1); Sodium 141 mmol/L (135-145); Total Protein 7.1 g/dl (6.3-8.2); Very Low Density Lipoprotein 42 mg/dl (0-30); eGFR > 60.00
[2025-07-09 12:07] LABS: TSH 1.39 uIU/ml (0.47-4.68)
== END ==
LOC: REG 07:34
PROVIDERS: ATTENDING PHYSICIAN Family Medicine
DX: E78.2 Mixed hyperlipidemia (principal); Z00.00 Encounter for general adult medical examination without abnormal findings; E87.20 Acidosis, unspecified; R74.8 Abnormal levels of other serum enzymes
CPT/HCPCS: 36415; 80053; 80061; 84443; 85025

== ENCOUNTER 2025-07-19 10:08 | Outpatient (RCR) | payer OTHER, SELFPAY | END 2025-07-19 23:59 | disposition home or self-care (01) | LOC: RPT 10:08 | PROVIDERS: ATTENDING PHYSICIAN Physician Assistant; FAMILY PHYSICIAN Family Medicine | DX: C71.9 Malignant neoplasm of brain, unspecified (principal); Z73.6 Limitation of activities due to disability | CPT/HCPCS: 97110; 97112; 97530; 97537 ==